=== PATIENT | female | born 2000 | race American Indian/Alaskan Native ===

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

== ENCOUNTER 2020-02-29 03:08 | Emergency (ER) | payer SELFPAY ==
[2020-02-29 04:19] LABS: Basophils % (Auto) 0.2 % (0.0-1.8); Eosinophils % (Auto) 0.1 % (0.0-4.3); Hematocrit 37.9 % (30.3-42.9); Lymphocytes # (Auto) 1.2 K/mm3 (1.2-5.4); Mean Corpuscular HGB Conc 34 % (30-34); Mean Corpuscular Volume 85 fl (79-97); Monocytes # (Auto) 0.3 K/mm3 (0.0-0.8); Monocytes % (Auto) 3.2 % (0.0-7.3); Platelet Count 352 K/mm3 (140-440); Red Blood Count 4.45 M/mm3 (3.65-5.03); Red Cell Distribution Width 13.9 % (13.2-15.2)
[2020-02-29 04:36] LABS: Alanine Aminotransferase 11 units/L (7-56); Albumin 4.5 g/dL (3.9-5); Blood Urea Nitrogen 10 mg/dL (7-17); Calcium 9.6 mg/dL (8.4-10.2); Hemolysis Index 9
[2020-02-29 04:40] LABS: BUN/Creatinine Ratio 20
--- NOTE | 2020-02-29 06:53 | Emergency Department Report ---
HPI - General Chief Complaint: Abdominal Pain Time Seen by Provider: 02/29/20 06:42 - HPI HPI: This is a 19-year-old female presents to the emergency department via EMS from home with a complaint of chest pain, abdominal pain, nausea, body aches and some seizure-like activity after "eating an edible." Patient says that she consumes edible sometime yesterday afternoon. It was not something that she made. She says that there was nobody else who consumed the edible with her whom she knows, and that she got it from somebody else." Patient says that she remembers having some shaking and some seizure-like activity and the patient says that she was " biting my tongue", but the patient does remember this incident. She initially complained of some left-sided chest pain, generalized abdominal pain, and nausea without vomiting. At the time of my examination the patient just complains of feeling "tired." When asked, the patient still complains of some chest discomfort but it is mild. It worsens with movement of her torso or her left arm. She denies any fever, shortness of breath, back pain, diaphoresis. When EMS arrived the patient had a very fast heart rate and she was given a 500 cc bolus prior to arrival. She denies any tobacco use. No family history of early cardiac disease or events. No recent travel or sick contacts at home. ED Past Medical Hx - Past Medical History Previous Medical History?: Yes Hx Asthma: Yes (SLEEP APNEA) - Surgical History Past Surgical History?: Yes Additional Surgical History: TONSILECTOMY - Social History Smoking Status: Never Smoker Substance Use Type: None - Medications Home Medications: Home Medications Medication Instructions Recorded Confirmed Last Taken Type Albuterol Sulfate [Ventolin HFA] 2 puff IH Q4H PRN 02/15/16 02/15/16 02/15/16 History Ibuprofen [Motrin] 400 mg PO Q8H PRN #25 tablet 06/02/16 Unknown Rx ED Review of Systems ROS: Stated complaint: CHEST PAIN/JOSE CARLOS Other details as noted in HPI Comment: All other systems reviewed and negative Constitutional: denies: chills, fever Eyes: denies: eye pain, vision change ENT: denies: ear pain, throat pain Respiratory: denies: cough, shortness of breath Cardiovascular: chest pain. denies: edema Gastrointestinal: abdominal pain (resolved), nausea (resolved). denies: vomiting Genitourinary: denies: dysuria, discharge Musculoskeletal: myalgia. denies: back pain Skin: denies: rash, lesions Neurological: denies: headache, weakness Physical Exam - Physical Exam Vital Signs: Vital Signs 02/29/20 03:18 Temperature 98.3 F Pulse Rate 106 H Respiratory 18 Rate Blood Pressure 114/68 O2 Sat by Pulse 98 Oximetry Physical Exam: GENERAL: The patient is well-developed well-nourished. HENT: Normocephalic. Atraumatic. Patient has moist mucous membranes. EYES: Extraocular motions are intact. NECK: Supple. Trachea is midline. CHEST/LUNGS: Clear to auscultation. There is no respiratory distress noted. There is reproducible left-sided chest pain to palpation of the chest wall. No crepitus or deformity. HEART/CARDIOVASCULAR: Regular. There is no tachycardia. There is no murmur. ABDOMEN: Abdomen is soft, nontender. Patient has normal bowel sounds. SKIN: Skin is warm and dry. NEURO: The patient is awake, alert, and oriented. The patient is cooperative. The patient has no focal neurologic deficits. Normal speech. Cranial nerves II through XII grossly intact. MUSCULOSKELETAL: There is no tenderness or deformity. There is no limitation range of motion. ED Course Vital Signs 02/29/20 03:18 Temperature 98.3 F Pulse Rate 106 H Respiratory 18 Rate Blood Pressure 114/68 O2 Sat by Pulse 98 Oximetry - Reevaluation(s) Reevaluation #1: 02/29/20 09:33 Lab Results 02/29/20 02/29/20 02/29/20 Range/Units 03:55 03:55 03:55 WBC 9.9 (4.5-11.0) K/mm3 RBC 4.45 (3.65-5.03) M/mm3 Hgb 13.0 (10.1-14.3) gm/dl Hct 37.9 (30.3-42.9) % MCV 85 (79-97) fl MCH 29 (28-32) pg MCHC 34 (30-34) % RDW 13.9 (13.2-15.2) % Plt Count 352 (140-440) K/mm3 Lymph % (Auto) 12.0 L (13.4-35.0) % [place] % (Auto) 3.2 (0.0-7.3) % Eos % (Auto) 0.1 (0.0-4.3) % Baso % (Auto) 0.2 (0.0-1.8) % Lymph # (Auto) 1.2 (1.2-5.4) K/mm3 [place] # (Auto) 0.3 (0.0-0.8) K/mm3 Eos # (Auto) 0.0 (0.0-0.4) K/mm3 Baso # (Auto) 0.0 (0.0-0.1) K/mm3 Seg Neutrophils % 84.5 H (40.0-70.0) % Seg Neutrophils # 8.4 H (1.8-7.7) K/mm3 Sodium 141 (137-145) mmol/L Potassium 5.1 H (3.6-5.0) mmol/L Chloride 103.8 (98-107) mmol/L Carbon Dioxide 26 (22-30) mmol/L Anion Gap 16 mmol/L BUN 10 (7-17) mg/dL Creatinine 0.5 L (0.6-1.2) mg/dL Estimated GFR > 60 ml/min BUN/Creatinine Ratio 20 % Glucose 122 H (65-100) mg/dL Calcium 9.6 (8.4-10.2) mg/dL Total Bilirubin < 0.20 (0.1-1.2) mg/dL AST 14 (5-40) units/L ALT 11 (7-56) units/L Alkaline Phosphatase 79 (35-129) units/L Total Protein 7.3 (6.3-8.2) g/dL Albumin 4.5 (3.9-5) g/dL Albumin/Globulin Ratio 1.6 % Lipase 21 (13-60) units/L HCG, Qual Negative (Negative) ED Medical Decision Making - Lab Data Result diagrams: 02/29/20 03:55 02/29/20 03:55 - EKG Data -: EKG Interpreted by Me EKG shows normal: sinus rhythm, axis, intervals, QRS complexes, ST-T waves Rate: normal - EKG Data When compared to previous EKG there are: previous EKG unavailable Interpretation: normal EKG - Radiology Data Radiology results: image reviewed interpreted by me: Chest x-ray does not show any acute process. There are no pleural effusions, obvious pneumonia and there is no pneumothorax. No significant cardiomegaly. - Medical Decision Making This patient ate an edible that she assumes was marijuana and developed some tachycardia, nausea and vomiting, abdominal pain and chest pain. The patient was in the emergency department for a few hours prior to my 6 AM shift starting. At the time of my examination the patient's main complaint is fatigue, and when pressed further she does admit to some mild continued chest discomfort. Overall this appears consistent with musculoskeletal chest pain. Heart and lung sounds are normal to auscultation. Pain is reproducible to palpation of the chest wall without crepitus or deformity. An EKG was done that does not have any morphology consistent with ST elevation myocardial infarction or any dysrhythmia. Chest x-ray does not show any pneumonia, pneumothorax, pleural effusions, or any other acute process. The patient's labs have been mostly unremarkable including CBC, metabolic panel, and the patient is not . Vital signs have been reassuring throughout her ED course including being afebrile. She appears safe for discharge home at this time. We discussed avoiding any further illicit drug use and follow-up with the primary care physician. She will return to the emergency department with any worsening of her symptoms or with any acute distress. Critical Care Time: No Critical care attestation.: If time is entered above; I have spent that time in minutes in the direct care of this critically ill patient, excluding procedure time. ED Disposition Clinical Impression: Musculoskeletal chest pain Accidental drug overdose Qualifiers: Encounter type: initial encounter Qualified Code(s): T50.901A - Poisoning by unspecified drugs, medicaments and biological substances, accidental (unintentional), initial encounter Disposition: DC-01 TO HOME OR SELFCARE Is pt being admited?: No Condition: Stable Instructions: Costochondritis (ED), Abdominal Pain (ED) Additional Instructions: Please do not take any further illicit drugs. Return to the emergency department with any worsening of your symptoms, new or concerning symptoms not addressed during this current emergency department visit, or with any acute distress. Referrals: PRIMARY CARE, [Primary Care Provider] - 2-3 Days Time of Disposition: 07:48
--- NOTE | 2020-02-29 07:56 | XRay Report ---
CHEST 2 VIEWS INDICATION / CLINICAL INFORMATION: CP. Chest pain. FINDINGS: SUPPORT DEVICES: None. HEART / MEDIASTINUM: No significant abnormality. LUNGS / PLEURA: No significant pulmonary or pleural abnormality. No pneumothorax. ADDITIONAL FINDINGS: No significant additional findings. IMPRESSION: 1. No acute findings. Signer Name: Evelio Hauser MD Signed: 02/29/2020 7:52 AM Workstation Name: [id number]
[2020-02-29 08:25] VITALS: BP 121/80
== END 2020-02-29 08:22 | disposition home or self-care (01) ==
LOC: ED 03:08
DX: R07.89 Other chest pain (principal); J45.909 Unspecified asthma, uncomplicated; Z79.899 Other long term (current) drug therapy; T65.91XA Toxic effect of unspecified substance, accidental (unintentional), initial encounter; Y92.89 Other specified places as the place of occurrence of the external cause
CPT/HCPCS: 36415; 71046; 80053; 83690; 84703; 85025; 93005